=== PATIENT | male | born 2005 | race Caucasian/White ===

== ENCOUNTER 2025-05-03 08:21 | Emergency (ER) | payer OTHER ==
[2025-05-03 08:49] LABS: #Basophils 0.06 10x3/uL (0.0-0.2); #Eosinophils 0.48 10x3/uL (0.0-0.7); #Monocytes 0.42 10x3/uL (0.11-0.59); #Neutrophils 2.23 10x3/uL (1.40-6.50); %Basophils 0.8 % (0.0-1.0); %Eosinophils 6.1 % (0.0-10.0); %Lymphocytes 58.9 % (28.0-48.0); %Monocytes 5.3 % (0.0-4.0); %Neutrophils 28.3 % (31.0-61.0); Hematocrit 47.3 % (42.0-52.0); Hemoglobin 15.7 g/dL (14.0-18.0); Mean Corpuscular Hemoglobin 30.2 pg (25.0-35.0); Mean Corpuscular Volume 91.0 fL (78.0-98.0); Platelet Count 227 10x3/uL (130-400); Red Blood Cell (RBC) Count 5.20 mill/uL (4.00-5.20); White Blood Cell (WBC) Count 7.89 10x3/uL (4.8-10.8)
[2025-05-03] MEDS ORDERED: Ondansetron PF 4 MG/2 ML Vial ONE ×2 (08:50→09:43)
[2025-05-03] MEDS ORDERED: Ketorolac Tromethamine 30 MG (1 mL) VIAL ONE (08:50)
[2025-05-03] MEDS ORDERED: CEFAZOLIN 1 GM VIAL ONE (08:51)
[2025-05-03 09:04] LABS: Acetaminophen Less than 10 mcg/mL (Less than 10); Salicylate Less than 8.0 mg/dL (Less than 8.0)
[2025-05-03 09:05] LABS: ALT (SGPT) 229 U/L (Less than 45); AST (SGOT) 238 U/L (11-34); Albumin 4.3 g/dL (3.1-4.5); Alkaline Phosphatase 64 U/L (50-130); Anion Gap 20 mmol/L (10-20); BUN (Urea Nitrogen) 14 mg/dL (8.9-20.6); Bilirubin, Total 1.5 mg/dL (0.3-1.2); Calc. Creatinine Clearance 0 mL/min (70-130); Calcium 9.4 mg/dL (7.8-10.44); Carbon Dioxide 17 mmol/L (22-29); Chloride 105 mmol/L (98-107); Globulin 3.1 g/dL (2.4-3.5); Glucose 147 mg/dL (70-105); Potassium 3.4 mmol/L (3.5-5.1); Sodium 139 mmol/L (136-145)
[2025-05-03] MEDS ORDERED: Tranexamic Acid 1,000 MG/10 ML VIAL ONE (09:43)
[2025-05-03] MEDS ORDERED: Iopamidol-370 76% 500 ML MDV (1 ML CHARGE) ONE (10:25)
== END 2025-05-03 13:13 | disposition short-term general hospital (02) ==
LOC: ERS 08:21
DX: S02.412A LeFort II fracture, initial encounter for closed fracture (principal); S36.113A Laceration of liver, unspecified degree, initial encounter; V26.99XA Unspecified rider of other motorcycle injured in collision with other nonmotor vehicle in traffic accident, initial encounter; Z55.6 Problems related to health literacy
CPT/HCPCS: 70450; 70486; 71045; 72125; 74177; 80053; 80307; 85025; 86850; 86900; 86901; 96365; 96367; 96375; 96376; G0390; J0690; J1885; J2270; J2405